=== PATIENT | male | born 1955 | race Caucasian/White ===

== ENCOUNTER 2018-03-18 21:21 | Emergency (ER) | payer OTHER ==
[~2018-03-18] VITALS: Ht 170.2 cm; Wt 88.5 kg
--- NOTE | 2018-03-18 21:21 | NUR ---
BIBA TO ER BED 3
[2018-03-18 21:25] VITALS: BP 160/95
--- NOTE | 2018-03-18 21:25 | NUR ---
PT BIBA WITH C/O LACERATION POST STATUS FALL OVER THE RIGHT SIDE OF EYE. PT IS A/O X 4. NO LOC POST FALL. GCS OF 15. NO PAIN 0/10 AT THIS TIME.DENIES N/V/D; SKIN IS PINK/WARM/DRY; EVEN AND STEADY GAIT; VSS; PATIENT POSITIONED FOR COMFORT; HOB ELEVATED; BEDRAILS UP X2; BED DOWN. ER MD MADE AWARE OF PT STATUS.
--- NOTE | 2018-03-18 21:25 | NUR ---
Patient being evaluated by physician at bedside.
[2018-03-18 21:55] VITALS: BP 155/92
== END 2018-03-18 21:55 | disposition home or self-care (01) ==
LOC: MED 21:21
DX: S01.111A Laceration without foreign body of right eyelid and periocular area, initial encounter (principal); E11.9 Type 2 diabetes mellitus without complications; I10 Essential (primary) hypertension; Z95.0 Presence of cardiac pacemaker; Z90.49 Acquired absence of other specified parts of digestive tract; W01.0XXA Fall on same level from slipping, tripping and stumbling without subsequent striking against object, initial encounter; Y93.54 Activity, bowling; Y92.89 Other specified places as the place of occurrence of the external cause; Y99.8 Other external cause status
CPT/HCPCS: 99283

== ENCOUNTER 2021-05-14 19:14 | Emergency (ER) | payer OTHER ==
[~2021-05-14] VITALS: Ht 170.2 cm; Wt 71.2 kg
[2021-05-14 19:55] VITALS: BP 196/107
--- NOTE | 2021-05-14 20:08 | NUR ---
AMB 1
--- NOTE | 2021-05-14 21:21 | NUR ---
PT DECLINED XRAY
--- NOTE | 2021-05-14 21:33 | NUR ---
PT REFUSED LABS
--- NOTE | 2021-05-14 21:35 | NUR ---
Patient does not wish to proceed with medical care recommended by [facility]. Patient given information related to possible complications, up to and including , which could occur as a result of leaving hospital at this time. Patient verbalizes understanding of risks involved leaving against medical advice. Patient has signed AMA form.
== END 2021-05-14 21:35 | disposition left against medical advice (07) ==
LOC: MED 19:14
DX: R53.1 Weakness (principal); E11.9 Type 2 diabetes mellitus without complications; I10 Essential (primary) hypertension; Z95.0 Presence of cardiac pacemaker; W19.XXXA Unspecified fall, initial encounter; Y93.89 Activity, other specified; Y92.89 Other specified places as the place of occurrence of the external cause; Y99.8 Other external cause status
CPT/HCPCS: 93005; 99283